=== PATIENT | female | born 1995 | race Caucasian/White ===

== ENCOUNTER → 2016-12-06 | Outpatient (CLI) | payer OTHER | END | disposition home or self-care (01) | LOC: C.PAPS 15:24 | PROVIDERS: ATTEND Physician Assistant | DX: Z12.4 Encounter for screening for malignant neoplasm of cervix (principal) ==

== ENCOUNTER → 2018-03-03 | Outpatient (CLI) | payer OTHER | END | disposition home or self-care (01) | LOC: C.LAB1850 15:52 | PROVIDERS: ATTEND Obstetrics & Gynecology | DX: Z34.02 Encounter for supervision of normal first pregnancy, second trimester (principal) ==

== ENCOUNTER 2018-08-10 11:42 | Inpatient (IN) ==
--- NOTE | 2018-08-10 12:38 | History & Physical Report ---
Date of Service August 10, 2018 Assessment & Plan (1) Double footling breech presentation: Patient in labor with malpresentation. Planned c/s tomorrow, will need to do today. No abx allergies, will give ancef 2g and move to delivery as soon as able. Dr. Salinas aware and will come to assist given multiple additional labor patients at this time. Dr. Alejandra Medina aware and on L&D at this time doing an epidural, will then move to , and having CMM INSPECTOR prepare OR now. History of Present Illness Chief Complaint: 23yo at 39wk with double footling breech presentation and painful contractions Q3-5min. Patient observed here for 1 hour and made change from 1cm to 2.5cm/80/high. Breech position confirmed by US. No LOF, no VB good FM. Primary Care Provider: SHIRLEY Betancur Allergies Allergy/AdvReac Type Severity Reaction Status Date / Time latex Allergy Intermediate Rash Verified 08/04/18 12:33 Home Medications Home Medications Medication Instructions Recorded Confirmed Type [id number] fumarate-FA 1 tab PO DAILY 08/04/18 08/04/18 History [] docusate sodium [Colace] 100 mg PO DAILY PRN 08/04/18 08/04/18 History famotidine 20 mg PO BID PRN 08/04/18 08/04/18 History Past Med/Surg History Medical History GERD (gastroesophageal reflux disease) Vaginal bleeding during A SUBCHORIONIC HEMATOMA AT 8 WEEKS THAT RESOLVED ON ITS OWN Surgical History H/O wisdom tooth extraction History of tonsillectomy Family History Grandfather (Maternal) Family history of diabetes mellitus Aunt Family history of diabetes mellitus Mother Skin cancer Social History Current Living Situation: Spouse Feels Safe at Home: Yes Smoking Status: Never smoker Second Hand Exposure: No Hx Alcohol Use: No Hx Substance Use: No Beliefs That Will Affect Care: None Preferred Language: Tajik Communication Ability: Effective Physical Exam 2 Physical Exam: Gen: In discomfort with contractions Cor: RRR Lungs: nonlabored breathing Cvx changed from 1cm to 2.5cm dilated. Membranes intact. Double footling breech on US.
[2018-08-10] MEDS ORDERED: MoRPHine SULFATE PF 1 MG/ML 10 ML AMP/VIAL EPI ONE ×2 (12:39→12:59)
[2018-08-10] MEDS ORDERED: LACTATED RINGER'S 1,000 ML IV SCH ×3 (12:45→14:30)
[2018-08-10] MEDS ORDERED: fentaNYL citrate 100 MCG/2 ML VIAL IV ONE (12:46)
[2018-08-10] MEDS ORDERED: OXYTOCIN 10 UNITS/ML VIAL IV ONE ×3 (12:46→14:03)
[2018-08-10] MEDS ORDERED: CITRIC ACID/SODIUM CITRATE 15 ML UDC PO ONE ×2 (12:50→13:00)
[2018-08-10 12:54] LABS: Basophils # (auto) 0.01 K/uL (0-0.2); Basophils % (auto) 0.1 %; Hemoglobin 13.6 g/dL (12.0-16.0); Immature Granulocytes # (auto) 0.04 K/uL (0.00-0.02); Immature Granulocytes % (auto) 0.5 %; Lymphocytes # (auto) 1.52 K/uL (1.2-3.4); Lymphocytes % (auto) 19.2 %; Mean Corpuscular Volume 90.3 fL (80-100); Mean Platelet Volume 10.6 fL (7.4-10.4); Monocytes % (auto) 8.8 %; Neutrophils # (auto) 5.64 K/uL (1.4-6.5); Neutrophils % (auto) 71.4 %; Platelet Count 217 K/uL (130-400); RDW Coefficient of Variation 13.3 % (11.5-14.5); RDW Standard Deviation 44.1 fL (36.4-46.3); Red Blood Count 4.43 M/uL (4.2-5.4); White Blood Count 7.91 K/uL (4.8-10.8)
[2018-08-10] MEDS ORDERED: fentaNYL citrate 100 MCG/2 ML CARP IV ONE (12:58)
[2018-08-10] MEDS ORDERED: CEFAZOLIN 2,000 MG in SYRINGE 0 ML IV SCH (13:00)
--- NOTE | 2018-08-10 13:07 | Anesthesiology Consultation ---
Date of Service August 10, 2018 Assessment & Plan Chart Review Chart Review: Acceptable Risk for Surgery History Surgery Operation Date: 08/10/18 13:00 Proposed Procedures p Section in LD - Umu Meneses MD Allergies Allergy/AdvReac Type Severity Reaction Status Date / Time latex Allergy Intermediate Rash Verified 08/04/18 12:33 Medications Home Medications Medication Instructions Recorded Confirmed Last Taken [id number] fumarate-FA 1 tab PO DAILY 08/04/18 08/04/18 Unknown [] docusate sodium [Colace] 100 mg PO DAILY PRN 08/04/18 08/04/18 Unknown famotidine 20 mg PO BID PRN 08/04/18 08/04/18 Unknown Past Medical History Medical History GERD (gastroesophageal reflux disease) Vaginal bleeding during A SUBCHORIONIC HEMATOMA AT 8 WEEKS THAT RESOLVED ON ITS OWN Past Family History Family History Grandfather (Maternal) Family history of diabetes mellitus Aunt Family history of diabetes mellitus Mother Skin cancer Past Surgical History Surgical History H/O wisdom tooth extraction History of tonsillectomy Social History Smoking Status: Never smoker Hx Alcohol Use: No Hx Substance Use: No substance use type: does not use Testing Laboratory Results 08/10/18 12:35
[2018-08-10] MEDS ORDERED: ONDANSETRON INJ 2 MG/ML 2 ML VIAL IV ONE (14:02)
[2018-08-10] MEDS ORDERED: DEXAMETHASONE SOD INJ 4 MG/ML VIAL IV ONE ×2 (14:03)
[2018-08-10] MEDS ORDERED: PHENYLEPHRINE 100MCG/ML 5ML SYR IV ONE (14:05)
[2018-08-10] MEDS ORDERED: NALOXONE HCL 1 MG in SODIUM CHLORIDE 0.9% 1000ML 1,000 ML IV PRN (14:18)
[2018-08-10] MEDS ORDERED: ONDANSETRON INJ 2 MG/ML 2 ML VIAL IV PRN (14:18)
[2018-08-10] MEDS ORDERED: LACTATED RINGER'S 500 ML IV PRN (14:18)
[2018-08-10] MEDS ORDERED: NALBUPHINE HCL INJ 10 MG/ML AMP IV PRN (14:18)
[2018-08-10] MEDS ORDERED: NALOXONE HCL 0.08 MG in SYRINGE 1.8 ML IV PRN (14:18)
[2018-08-10] MEDS ORDERED: MEPERIDINE HCL 25 MG/ML CARP IV PRN (14:18)
[2018-08-10] MEDS ORDERED: MoRPHine SULFATE PF 1 MG/ML 10 ML AMP/VIAL INT SPINAL ONE (14:18)
[2018-08-10] MEDS ORDERED: NALOXONE HCL 0.4 MG/1 ML VIAL/CARP IV PRN (14:18)
[2018-08-10] MEDS ORDERED: ePHEDrine sulfate 50 MG/ML AMP IV PRN (14:18)
[2018-08-10] MEDS ORDERED: MoRPHine SULFATE 2 MG/ML CARP IV PRN (14:18)
[2018-08-10] MEDS ORDERED: DiphenhydrAMINE HCL 50 MG/ML VIAL IV PRN (14:18)
[2018-08-10] MEDS ORDERED: SENNA 8.6 MG TAB PO PRN (14:19)
[2018-08-10] MEDS ORDERED: MAGNESIUM HYDROXIDE SUSP 30 ML UDC PO PRN (14:19)
[2018-08-10] MEDS ORDERED: SUPERCREAM 0.870% 15 GM JAR EXT PRN (14:19)
[2018-08-10] MEDS ORDERED: BENZOCAINE 20% AER SPR 82.5 GM CAN EXT PRN (14:19)
[2018-08-10] MEDS ORDERED: HYDROCORTISONE ACETATE 25 MG SUPP PR PRN (14:19)
[2018-08-10] MEDS ORDERED: DIPHTHERIA/TETANUS/PERTUSSIS 0.5 ML SYR/VIAL IM ONE (14:19)
--- NOTE | 2018-08-10 14:19 | Post Operative Brief Note ---
Immediate Post Op Note v1 Date of Surgery August 10, 2018 Pre & Post Diagnosis Operation Date: 08/10/18 13:00 Breech presentation at term, labor Procedure Operation Date: 08/10/18 13:00 Primary Low Transverse Cesaran section Surgeon Umu Meneses MD Back End Engineer Brad Estimated Blood Loss 450 Findings Consistent with Post-Op Diagnosis
[2018-08-10] MEDS ORDERED: NO NARCOTICS OR SEDATIVES SCH (14:30)
[2018-08-10] MEDS ORDERED: SODIUM CHLORIDE 0.9% 1000ML 1,000 ML IV SCH (14:30)
[2018-08-10] MEDS ORDERED: DC INTRASPINAL MORPHINE SCH (14:30)
[2018-08-10] MEDS ORDERED: SCOPOLAMINE 1.5 MG TDSY TD ONE (15:41)
--- NOTE | 2018-08-10 16:07 | Anesthesiology Progress Note ---
Date of Service August 10, 2018 Anesthesia Post Procedure Vital Signs Vital Signs: Temp Pulse Resp BP Pulse Ox 08/10/18 16:02 62 96 08/10/18 15:57 66 97 08/10/18 15:52 62 100 08/10/18 15:48 62 104/58 L 08/10/18 15:47 62 100 08/10/18 15:42 60 100 08/10/18 15:38 62 99/49 L 08/10/18 15:37 65 100 08/10/18 15:32 66 100 08/10/18 15:28 67 105/59 L 08/10/18 15:27 68 100 08/10/18 15:22 65 100 08/10/18 15:18 107/58 L 08/10/18 15:17 70 100 08/10/18 15:12 71 100 08/10/18 15:08 65 100/55 L 08/10/18 15:07 65 100 08/10/18 15:02 74 99 08/10/18 14:58 75 99/55 L 08/10/18 14:57 79 100 08/10/18 14:52 74 100 08/10/18 14:48 77 96/54 L 08/10/18 14:47 83 97 08/10/18 14:42 78 100 08/10/18 14:37 93 H 102/55 L 99 08/10/18 14:32 89 100 08/10/18 14:30 36.3 C L 16 08/10/18 14:28 82 98/52 L 08/10/18 14:27 79 100 Notes Mental Status: alert / awake / arousable Patient Amnestic to Procedure: Yes Nausea / Vomiting: adequately controlled Pain: adequately controlled Airway Patency, RR, SpO2: stable & adequate BP & HR: stable & adequate Hydration State: stable & adequate Neuraxial Anesthesia: was administered and sensory block is resolving Anesthetic Complications: no major complications apparent and Pt Satisfied with anesthetic care
--- NOTE | 2018-08-10 16:14 | Operative Report ---
DATE OF OPERATION: 08/10/2018 PREOPERATIVE DIAGNOSIS: Breech presentation with duron intrauterine at term and labor. POSTOPERATIVE DIAGNOSES: Breech presentation with duron intrauterine at term and labor. PROCEDURE: Primary low transverse section. SURGEON: Umu Meneses MD. DEHYDRATING PRESS OPERATOR: Rick Salinas MD. ESTIMATED BLOOD LOSS: 450. FINDINGS: Consistent with postoperative diagnosis. COMPLICATIONS: None. DISPOSITION: Stable to labor and delivery. DESCRIPTION: Johnathan was placed on the table in the supine position with a leftward tilt, prepped and draped in standard sterile fashion, and a hard time-out was taken prior to proceeding. A Pfannenstiel incision was created sharply and carried down to the fascia, which was extended using Adkisn scissors. The fascia was elevated and sharply and bluntly dissected off the underlying rectus, which was bluntly and sharply in the midline. The peritoneum was entered bluntly. A bladder flap was created while the bladder retractor was in place. A lower uterine segment was found to be well developed with palpable sacrum. A hysterotomy was then created in a sharp manner with final entry to the uterus being made bluntly by the surgeon's finger. The hysterotomy was extended in a similar fashion. The sacrum was then elevated to the hysterotomy and delivered using mild fundal pressure. The body was wrapped in a wet towel, and the right and then left arm swept in physiologic fashion maintaining flexion. The baby's head was then delivered using the fundal pressure once more. The was placed on the sterile field while the cord was doubly clamped and cut, and the was then taken to the warmer. The placenta was manually extracted and found to be intact with a 3-vessel cord. The uterus was exteriorized and found to contain a 2 cm lenticular fibroid on its anterior surface but otherwise was normal with normal tubes and ovaries. The interior of the uterus was cleared of all clot and debris using a dry lap sponge. Hysterotomy was then repaired in a 2-layer fashion using 0 Vicryl suture. There was noted to be a left cervical extension. This was incorporated into the repair, and at the completion of repair, this has the appearance of a normal transverse lower uterine incision. I do not believe this incision should pose a problem for a future if desired. The uterus was nicely firmed and was replaced in the abdomen after the posterior gutter was cleared of clot and debris. The lateral gutters were cleared of clot and debris using a damp lap sponge, and the hysterotomy was again examined and found to be hemostatic. The rectus was allowed to reapproximate naturally. The fascia was grasped using a Eleonora and then repaired in running nonlocked fashion with a #1 Vicryl suture as is typical. At the completion of repair, the fascia was examined and found to be free of any defect. The subcutaneous tissue was copiously irrigated and then closed using a 3-0 chromic, and the skin was reapproximated using 4-0 Monocryl in a running subcuticular manner and then covered with a Dermabond dressing. The patient was transferred in stable condition back to labor and delivery room with Mercedes draining clear yellow urine. I attest to the content of the Intraoperative Record and any orders documented therein. Any exception s are noted below.
[2018-08-10] MEDS ORDERED: OXYTOCIN 20 UNITS in LACTATED RINGER'S 1,000 ML IV SCH (17:30)
[2018-08-10] MEDS: SIMETHICONE 80 MG CHEW PO SCH ×2 (19:00→20:25)
[2018-08-10] MEDS: KETOROLAC 30 MG/ML VIAL IV PRN (19:02)
[2018-08-10] MEDS: DOCUSATE SODIUM 100 MG CAP PO SCH (20:23)
[2018-08-10] MEDS ORDERED: INFLUENZA VIRUS QUAD VACCINE 0.5 ML SYR IM ONE (21:45)
[2018-08-10] MEDS ORDERED: INFLUENZA ADMINISTRATION CHARGE ONE (21:45)
[2018-08-11] MEDS: KETOROLAC 30 MG/ML VIAL IV PRN (06:18)
[2018-08-11 06:32] LABS: Hematocrit (blood only) 34.5 % (37-47); Hemoglobin 11.9 g/dL (12.0-16.0); Immature Granulocytes # (auto) 0.05 K/uL (0.00-0.02); Immature Granulocytes % (auto) 0.4 %; Lymphocytes # (auto) 1.71 K/uL (1.2-3.4); Lymphocytes % (auto) 12.5 %; Mean Corpuscular Hgb Conc 34.5 g/dL (32-36); Mean Corpuscular Volume 88.9 fL (80-100); Mean Platelet Volume 10.5 fL (7.4-10.4); Monocytes # (auto) 0.98 K/uL (0.11-0.59); Monocytes % (auto) 7.2 %; Neutrophils # (auto) 10.96 K/uL (1.4-6.5); Neutrophils % (auto) 79.9 %; Platelet Count 201 K/uL (130-400); RDW Coefficient of Variation 13.2 % (11.5-14.5); RDW Standard Deviation 43.1 fL (36.4-46.3); Red Blood Count 3.88 M/uL (4.2-5.4)
--- NOTE | 2018-08-11 08:02 | Obstetrical Progress Note ---
Date of Service <Vinnie Canales - Last Filed: 08/11/18 08:02> August 11, 2018 Assessment & Plan <Vinnie CanalesDO - Last Filed: 08/11/18 08:02> (1) delivery delivered: 23 y/o, , C/S @ 39.2 weeks, for double footing breech presentation continue routine post- care, encourage ambulation and monitor and manage pain POD#1 (2) 39 weeks gestation of : delivered via Day #:: 1 Subjective <Vinnie Canales - Last Filed: 08/11/18 08:02> Passing Gas:: Yes Diet Tolerance:: clear liquids Feeding Type:: breast feeding Johnathan notes she has had some mild nausea with clear liquids and with jello, no vomiting. She just had her narvaez removed this morning and has not yet urinated. She denies any fever, chills, chest pain, shortness of breath, headache. Physical Exam <Vinnie DO Parker - Last Filed: 08/11/18 08:02> Vital Signs (Past 24 Hours) Last Vital Signs Temp 37.4 C 08/11/18 03:40 Pulse 84 08/11/18 03:40 Resp 16 08/11/18 04:16 BP 85/45 L 08/11/18 03:40 Pulse Ox 97 08/11/18 04:16 Constitutional WD/WN, vitals as above Respiratory normal respiratory effort, lungs clear to auscultation Cardiovascular Rate/Rhythm: regular rate and regular rhythm Heart Sounds: no murmur Gastrointestinal (Abdomen) Percussion/Palpation: abdomen soft; abdomen nontender incision site is clean, dry, and intact with no signs of infection Skin no rashes, warm and dry Neurologic moves all extremities and awake Psychiatric Orientation: alert Affect: euthymic affect Results & Data <Vinnie DO Parker Marcus Last Filed: 08/11/18 08:02> Laboratory Results Laboratory Results - last 24 hr 08/10/18 08/10/18 08/11/18 12:35 12:35 06:21 WBC 7.91 13.70 H RBC 4.43 3.88 L Hgb 13.6 11.9 L Hct 40.0 34.5 L MCV 90.3 88.9 MCH 30.7 30.7 MCHC 34.0 34.5 RDW Std Deviation 44.1 43.1 RDW Coeff of Susu 13.3 13.2 Plt Count 217 201 MPV 10.6 H 10.5 H Immature Gran % (Auto) 0.5 0.4 Neut % (Auto) 71.4 79.9 Lymph % (Auto) 19.2 12.5 [place] % (Auto) 8.8 7.2 Eos % (Auto) 0.0 0.0 Baso % (Auto) 0.1 0.0 Immature Gran # (Auto) 0.04 H 0.05 H Neut # (Auto) 5.64 10.96 H Lymph # (Auto) 1.52 1.71 [place] # (Auto) 0.70 H 0.98 H Eos # (Auto) 0.00 0.00 Baso # (Auto) 0.01 0.00 Blood Type A Positive Antibody Screen NEGATIVE Medications Administered Docusate Sodium (Colace) 100 mg PO BID [facility] Stop: 09/09/18 20:59 Last Admin: 08/10/18 20:23 Dose: 100 mg Lactated Ringer's (Lr) 1,000 mls @ 125 mls/hr IV .Q8H [facility] Stop: 09/09/18 13:30 Last Admin: 08/10/18 13:11 Dose: 125 mls/hr Lactated Ringer's (Lr) 1,000 mls @ 125 mls/hr IV .Q8H [facility] Stop: 09/09/18 14:29 Last Admin: 08/11/18 01:59 Dose: 125 mls/hr Ketorolac Tromethamine (Toradol) 30 mg IV Q6H PRN PRN Reason: Breakthrough Surgical Pain Stop: 08/11/18 08:18 Last Admin: 08/11/18 06:18 Dose: 30 mg Admin: 08/10/18 19:02 Dose: 30 mg Simethicone (Mylicon) 80 mg PO QID [facility] Stop: 09/09/18 16:59 Last Admin: 08/10/18 20:25 Dose: 80 mg Admin: 08/10/18 19:00 Dose: Not Given <Umu Meneses MD - Last Filed: 08/11/18 08:09> Co-Signing Physician Notes I have examined the patient and agree with the resident note above.
[2018-08-11] MEDS ORDERED: DiphenhydrAMINE HCL 50 MG/ML VIAL IV PRN (08:18)
[2018-08-11] MEDS ORDERED: MEPERIDINE HCL 50 MG/ML CARP IV PRN (08:18)
[2018-08-11] MEDS ORDERED: ONDANSETRON INJ 2 MG/ML 2 ML VIAL IV PRN (08:18)
[2018-08-11] MEDS ORDERED: KETOROLAC 30 MG/ML VIAL IV PRN (08:18)
[2018-08-11] MEDS ORDERED: PROMETHAZINE HCL 25 MG in SODIUM CHLORIDE 0.9% 50 ML IV PRN (08:18)
[2018-08-11] MEDS: PRENATAL VITAMIN 1 TAB PO SCH (09:13)
[2018-08-11] MEDS: FERROUS SULFATE 325 MG TAB PO SCH (09:13)
[2018-08-11] MEDS: DOCUSATE SODIUM 100 MG CAP PO SCH ×2 (09:13→21:10)
[2018-08-11] MEDS: SIMETHICONE 80 MG CHEW PO SCH ×4 (09:13→21:11)
[2018-08-11] MEDS: OXYCODONE/ACETAMINOPHEN 5mg/325mg TAB PO PRN ×3 (11:07→21:35)
[2018-08-11] MEDS: IBUPROFEN 600 MG TAB PO PRN ×3 (11:07→21:34)
--- NOTE | 2018-08-11 11:34 | Anesthesiology Progress Note ---
Date of Service August 11, 2018 Anesthesia Post Procedure Vital Signs Vital Signs: Temp Pulse Pulse Resp BP BP BP 08/11/18 07:40 37.2 C 69 18 88/50 L 08/11/18 04:16 16 08/11/18 03:40 37.4 C 84 16 85/45 L 08/11/18 02:00 14 08/11/18 01:40 16 08/11/18 00:31 36.6 C 08/10/18 23:40 37.3 C 66 16 99/6 L 08/10/18 22:50 18 08/10/18 21:50 18 08/10/18 20:50 36.5 C 78 20 108/68 08/10/18 19:50 18 08/10/18 18:50 16 08/10/18 18:29 36.3 C L 18 08/10/18 18:20 36.4 C L 71 18 105/67 08/10/18 17:50 35.4 C L 18 08/10/18 16:32 61 08/10/18 16:28 73 106/63 08/10/18 16:27 61 08/10/18 16:22 63 08/10/18 16:18 59 L 107/60 08/10/18 16:17 61 08/10/18 16:16 68 08/10/18 16:12 59 L 08/10/18 16:09 64 146/58 H 08/10/18 16:07 63 08/10/18 16:02 62 08/10/18 15:57 66 08/10/18 15:52 62 08/10/18 15:48 62 104/58 L 08/10/18 15:47 62 08/10/18 15:42 60 08/10/18 15:38 62 99/49 L 08/10/18 15:37 65 08/10/18 15:32 66 08/10/18 15:28 67 105/59 L 08/10/18 15:27 68 08/10/18 15:22 65 08/10/18 15:18 107/58 L 08/10/18 15:17 70 08/10/18 15:12 71 08/10/18 15:08 65 100/55 L 08/10/18 15:07 65 08/10/18 15:02 74 08/10/18 14:58 75 99/55 L 08/10/18 14:57 79 08/10/18 14:52 74 08/10/18 14:48 77 96/54 L 08/10/18 14:47 83 08/10/18 14:42 78 08/10/18 14:37 93 H 102/55 L 08/10/18 14:32 89 08/10/18 14:30 36.3 C L 16 08/10/18 14:28 82 98/52 L 08/10/18 14:27 79 Pulse Ox 08/11/18 07:40 96 08/11/18 04:16 97 08/11/18 03:40 96 08/11/18 02:00 96 08/11/18 01:40 96 08/11/18 00:31 08/10/18 23:40 94 08/10/18 22:50 98 08/10/18 21:50 95 08/10/18 20:50 99 08/10/18 19:50 97 08/10/18 18:50 97 08/10/18 18:29 08/10/18 18:20 97 08/10/18 17:50 97 08/10/18 16:32 100 08/10/18 16:28 08/10/18 16:27 100 08/10/18 16:22 100 08/10/18 16:18 08/10/18 16:17 98 08/10/18 16:16 91 08/10/18 16:12 100 08/10/18 16:09 08/10/18 16:07 100 08/10/18 16:02 96 08/10/18 15:57 97 08/10/18 15:52 100 08/10/18 15:48 08/10/18 15:47 100 08/10/18 15:42 100 08/10/18 15:38 08/10/18 15:37 100 08/10/18 15:32 100 08/10/18 15:28 08/10/18 15:27 100 08/10/18 15:22 100 08/10/18 15:18 08/10/18 15:17 100 08/10/18 15:12 100 08/10/18 15:08 08/10/18 15:07 100 08/10/18 15:02 99 08/10/18 14:58 08/10/18 14:57 100 08/10/18 14:52 100 08/10/18 14:48 08/10/18 14:47 97 08/10/18 14:42 100 08/10/18 14:37 99 08/10/18 14:32 100 08/10/18 14:30 08/10/18 14:28 08/10/18 14:27 100 Pain Intensity Medial Abdomen: Pain Intensity: 1 Notes Mental Status: alert / awake / arousable Nausea / Vomiting: adequately controlled Pain: adequately controlled Airway Patency, RR, SpO2: stable & adequate BP & HR: stable & adequate Hydration State: stable & adequate Neuraxial Anesthesia: was administered and sensory block resolved Anesthetic Complications: no major complications apparent and Pt Satisfied with anesthetic care
[2018-08-11] MEDS ORDERED: BISACODYL 5 MG TABEC PO SCH (20:00)
[2018-08-12] MEDS: CHECK SCOPOLAMINE PATCH PLACEMENT SCH ×2 (00:27→08:30)
--- NOTE | 2018-08-12 07:47 | Obstetrical Progress Note ---
Date of Service <DO Marcus Foreman Last Filed: 08/12/18 07:47> August 12, 2018 Assessment & Plan <DO Marcus Foreman Last Filed: 08/12/18 07:47> (1) delivery delivered: 23 y/o, , C/S @ 39.2 weeks, for double footing breech presentation continue routine post- care, encourage ambulation and monitor and manage pain POD#2 (2) 39 weeks gestation of : delivered via Subjective <Vinnie Canales DO - Last Filed: 08/12/18 07:47> Ambulation: ambulating normally Voiding: no voiding problems Passing Gas:: Yes Diet Tolerance:: regular diet Feeding Type:: breast feeding Current Pain Level(1-10): 3 Johnathan states she is doing well this morning, no acute concerns. She denies fever, chills, shortness of breath, chest pain, nausea vomiting. She has 3/10 pain to surgical incision site that improved with analgesics. Physical Exam <DO Marcus Foreman Last Filed: 08/12/18 07:47> Vital Signs (Past 24 Hours) Last Vital Signs Temp 36.3 C L 08/11/18 23:00 Pulse 77 08/11/18 23:00 Resp 18 08/11/18 23:00 BP 100/66 08/11/18 23:00 Pulse Ox 97 08/11/18 23:00 Constitutional WD/WN, vitals as above Respiratory normal respiratory effort, lungs clear to auscultation Cardiovascular Rate/Rhythm: regular rate and regular rhythm Heart Sounds: no murmur Gastrointestinal (Abdomen) Percussion/Palpation: abdomen soft; abdomen nontender surgical incision site is clean, dry, intact without any signs of infection Skin no rashes, warm and dry Neurologic moves all extremities and awake Psychiatric Orientation: alert Affect: euthymic affect Results & Data <DO Marcus Foreman Last Filed: 08/12/18 07:47> Medications Administered Docusate Sodium (Colace) 100 mg PO BID [facility] Stop: 09/09/18 20:59 Last Admin: 08/11/18 21:10 Dose: 100 mg Admin: 08/11/18 09:13 Dose: 100 mg Admin: 08/10/18 20:23 Dose: 100 mg Ferrous Sulfate (Feosol) 325 mg PO QAM [facility] Stop: 09/10/18 08:59 Last Admin: 08/11/18 09:13 Dose: 325 mg Lactated Ringer's (Lr) 1,000 mls @ 125 mls/hr IV .Q8H [facility] Stop: 09/09/18 13:30 Last Admin: 08/10/18 13:11 Dose: 125 mls/hr Lactated Ringer's (Lr) 1,000 mls @ 125 mls/hr IV .Q8H [facility] Stop: 09/09/18 14:29 Last Infusion: 08/11/18 09:52 Dose: Infusion: 08/11/18 09:15 Dose: 0 mls/hr Admin: 08/11/18 01:59 Dose: 125 mls/hr Ibuprofen (Motrin) 600 mg PO Q4H PRN PRN Reason: Pain Stop: 09/09/18 14:18 Last Admin: 08/11/18 21:34 Dose: 600 mg Admin: 08/11/18 16:39 Dose: 600 mg Admin: 08/11/18 11:07 Dose: 600 mg Miscellaneous (Check Scopolamine Patch Placement) 1 ea N/A QS [facility] Stop: 08/13/18 12:00 Last Admin: 08/12/18 00:27 Dose: 1 ea Oxycodone/Acetaminophen (Percocet 5mg/325mg) 1 - 2 tab PO Q4H PRN PRN Reason: Pain Stop: 08/25/18 08:17 Last Admin: 08/11/18 21:35 Dose: 1 tab Admin: 08/11/18 16:38 Dose: 1 tab Admin: 08/11/18 11:07 Dose: 1 tab Prenat Multivit/[place]/Iron/Folic Ac ( Vitamin) 1 tab PO QAM [facility] Stop: 09/10/18 08:59 Last Admin: 08/11/18 09:13 Dose: 1 tab Simethicone (Mylicon) 80 mg PO QID [facility] Stop: 09/09/18 16:59 Last Admin: 08/11/18 21:11 Dose: 80 mg Admin: 08/11/18 18:54 Dose: 80 mg Admin: 08/11/18 12:23 Dose: 80 mg Admin: 08/11/18 09:13 Dose: 80 mg Admin: 01/06/19 20:25 Dose: 80 mg Admin: 08/10/18 19:00 Dose: Not Given <Rick Salinas MD, FACOG - Last Filed: 08/12/18 07:48> Co-Signing Physician Notes Resident Physician Supervision Note: I interviewed and examined the patient. Discussed with Dr. Canales and agree with findings and plan as documented in the note. Any exceptions or clarifications are listed here: [None] Documented By: Rick Salinas MD, FACOG
[2018-08-12 08:06] LABS: Hematocrit (blood only) 32.2 % (37-47); Hemoglobin 10.8 g/dL (12.0-16.0)
[2018-08-12] MEDS: FERROUS SULFATE 325 MG TAB PO SCH (08:45)
[2018-08-12] MEDS: IBUPROFEN 600 MG TAB PO PRN ×3 (08:45→21:05)
[2018-08-12] MEDS: SIMETHICONE 80 MG CHEW PO SCH ×4 (08:45→21:02)
[2018-08-12] MEDS: DOCUSATE SODIUM 100 MG CAP PO SCH ×2 (08:45→21:02)
[2018-08-12] MEDS: PRENATAL VITAMIN 1 TAB PO SCH (08:45)
[2018-08-12] MEDS: OXYCODONE/ACETAMINOPHEN 5mg/325mg TAB PO PRN ×2 (08:46→16:32)
[2018-08-12] MEDS ORDERED: BISACODYL 10 MG SUPP PR PRN (14:19)
[2018-08-13] MEDS: OXYCODONE/ACETAMINOPHEN 5mg/325mg TAB PO PRN ×2 (01:58→12:59)
--- NOTE | 2018-08-13 08:21 | Obstetrical Progress Note ---
Date of Service <Vinnie Canales DO Velazquez Last Filed: 08/13/18 08:21> August 13, 2018 Assessment & Plan <Vinnie Canales DO Velazquez Last Filed: 08/13/18 08:21> (1) delivery delivered: 23 y/o, , C/S @ 39.2 weeks, for double footing breech presentation continue routine post- care, until discharge home today discharge instructions reviewed at bedside POD#3 (2) 39 weeks gestation of : delivered via Subjective <Vinnie Canales - Last Filed: 08/13/18 08:21> Ambulation: ambulating normally Voiding: no voiding problems Passing Gas:: Yes Diet Tolerance:: regular diet Feeding Type:: breast feeding Johnathan is doing well this morning. No fevers, chills, chest pain, shortness of breath, nausea, vomiting. Physical Exam <Vinnie Canales - Last Filed: 08/13/18 08:21> Vital Signs (Past 24 Hours) Last Vital Signs Temp 36.9 C 08/13/18 07:49 Pulse 69 08/13/18 07:49 Resp 20 08/13/18 07:49 BP 98/64 L 08/13/18 07:49 Pulse Ox 97 08/12/18 16:45 Constitutional WD/WN, vitals as above Respiratory normal respiratory effort, lungs clear to auscultation Cardiovascular Rate/Rhythm: regular rate and regular rhythm Heart Sounds: no murmur Gastrointestinal (Abdomen) Percussion/Palpation: abdomen soft; abdomen nontender fundus is firm, nontender, 3cm below umbilicus. Surgical incision is clean, dry , intact without signs of infection. Skin no rashes, warm and dry Neurologic moves all extremities and awake Psychiatric Orientation: alert Affect: euthymic affect Results & Data <Vinnie Canales DO Velazquez Last Filed: 08/13/18 08:21> Medications Administered Docusate Sodium (Colace) 100 mg PO BID [facility] Stop: 09/09/18 20:59 Last Admin: 08/12/18 21:02 Dose: 100 mg Admin: 08/12/18 08:45 Dose: 100 mg Admin: 08/11/18 21:10 Dose: 100 mg Admin: 08/11/18 09:13 Dose: 100 mg Admin: 08/10/18 20:23 Dose: 100 mg Ferrous Sulfate (Feosol) 325 mg PO QAM [facility] Stop: 09/10/18 08:59 Last Admin: 08/12/18 08:45 Dose: 325 mg Admin: 08/11/18 09:13 Dose: 325 mg Lactated Ringer's (Lr) 1,000 mls @ 125 mls/hr IV .Q8H [facility] Stop: 09/09/18 13:30 Last Admin: 08/10/18 13:11 Dose: 125 mls/hr Lactated Ringer's (Lr) 1,000 mls @ 125 mls/hr IV .Q8H [facility] Stop: 09/09/18 14:29 Last Infusion: 08/11/18 09:52 Dose: Infusion: 08/11/18 09:15 Dose: 0 mls/hr Admin: 08/11/18 01:59 Dose: 125 mls/hr Ibuprofen (Motrin) 600 mg PO Q4H PRN PRN Reason: Pain Stop: 09/09/18 14:18 Last Admin: 08/12/18 21:05 Dose: 600 mg Admin: 08/12/18 16:32 Dose: 600 mg Admin: 08/12/18 08:45 Dose: 600 mg Admin: 08/11/18 21:34 Dose: 600 mg Admin: 08/11/18 16:39 Dose: 600 mg Admin: 08/11/18 11:07 Dose: 600 mg Miscellaneous (Check Scopolamine Patch Placement) 1 ea N/A QS [facility] Stop: 08/13/18 12:00 Last Admin: 08/12/18 08:30 Dose: 1 ea Admin: 08/12/18 00:27 Dose: 1 ea Miscellaneous (Remove Transderm-Scop Patch) 1 ea N/A Q72H [facility] Stop: 08/13/18 15:43 Last Admin: 08/12/18 16:02 Dose: 1 ea Oxycodone/Acetaminophen (Percocet 5mg/325mg) 1 - 2 tab PO Q4H PRN PRN Reason: Pain Stop: 08/25/18 08:17 Last Admin: 08/13/18 01:58 Dose: 1 tab Admin: 08/12/18 16:32 Dose: 1 tab Admin: 08/12/18 08:46 Dose: 1 tab Admin: 08/11/18 21:35 Dose: 1 tab Admin: 08/11/18 16:38 Dose: 1 tab Admin: 08/11/18 11:07 Dose: 1 tab Prenat Multivit/[employer]/Iron/Folic Ac ( Vitamin) 1 tab PO QAM [facility] Stop: 09/10/18 08:59 Last Admin: 08/12/18 08:45 Dose: 1 tab Admin: 08/11/18 09:13 Dose: 1 tab Simethicone (Mylicon) 80 mg PO QID [facility] Stop: 09/09/18 16:59 Last Admin: 08/12/18 21:02 Dose: 80 mg Admin: 08/12/18 16:31 Dose: 80 mg Admin: 08/12/18 14:27 Dose: 80 mg Admin: 08/12/18 08:45 Dose: 80 mg Admin: 08/11/18 21:11 Dose: 80 mg Admin: 08/11/18 18:54 Dose: 80 mg Admin: 08/11/18 12:23 Dose: 80 mg Admin: 08/11/18 09:13 Dose: 80 mg Admin: 08/10/18 20:25 Dose: 80 mg Admin: 08/10/18 19:00 Dose: Not Given <Freda William MD, FACOG - Last Filed: 08/13/18 08:24> Co-Signing Physician Notes Resident Physician Supervision Note: I interviewed and examined the patient. Discussed with Dr. Canales and agree with findings and plan as documented in the note. Any exceptions or clarifications are listed here: Doing well, plan d/c, instructions given. Documented By: Freda William MD, FACOG
[2018-08-13] MEDS: DOCUSATE SODIUM 100 MG CAP PO SCH (08:25)
[2018-08-13] MEDS: SIMETHICONE 80 MG CHEW PO SCH ×2 (08:25→12:59)
[2018-08-13] MEDS: FERROUS SULFATE 325 MG TAB PO SCH (08:25)
[2018-08-13] MEDS: PRENATAL VITAMIN 1 TAB PO SCH (08:25)
[2018-08-13] MEDS: IBUPROFEN 600 MG TAB PO PRN (13:00)
--- NOTE | 2018-08-14 08:51 | Discharge Summary ---
Date of Service August 14, 2018 Discharge Data Consultations 08/10/18 12:31 Consult Anesthesiology Stat Procedures Performed Operation Date: 08/10/18 13:00 Actual Procedures p Section in LD(Bilateral) - Umu Meneses MD Hospital Course (1) delivery delivered:
== END 2018-08-13 14:18 | disposition home or self-care (01) | DRG 788 ==
LOC: OPB 11:42 → 4S1 11:42 → 4S2 17:00
DX: O32.8XX0 Maternal care for other malpresentation of fetus, not applicable or unspecified; Z3A.39 39 weeks gestation of pregnancy; Z37.0 Single live birth